=== PATIENT | female | born 1960 | race Caucasian/White ===

== ENCOUNTER → 2016-07-18 | Outpatient (CLI) | payer BC ==
[~2016-07-18] MED LIST: CYCL10TA45 GT; LVT.05T PO; METO25TA PO; PRAV40TA PO; [UNRECOGNIZED DRUG - OTHER] PO
--- OUTSIDE RECORDS SUMMARY | 2016-07-18 13:10 | XMS REPORT | Continuity of Care Document ---
Author Author [facility] Organization [facility] Address Unknown Phone Unavailable Allergies Medications Problems Procedures Results Encounters ACCT No. Visit Date/Time Discharge Status Pt. Type Provider Facility Loc./Unit Complaint [id number] 01/12/2014 10:57:00 2013 23:59:59 CLS Outpatient [id number] 08/13/2013 07:26:00 2013 11:05:00 DIS Outpatient [id number] 08/06/2013 07:39:00 2013 23:59:59 CLS Outpatient [id number] 11/19/2012 09:40:00 2012 23:59:59 CLS Outpatient
--- NOTE | 2016-07-18 18:36 | Diagnostic Imaging Report ---
Digital mammogram bilateral screening. This study was compared to the prior exams of 01/12/2014 and 11/19/2012. At this time, there are no current complaints. The current study was also evaluated with a Computer Aided Detection (CAD) system. FINDINGS: The fibroglandular tissue in both breasts is dense. This does limit the sensitivity of this exam. Overall, there does not appear to have been any significant change when compared to the prior study. No primary or secondary sign of malignancy is noted. IMPRESSION: 1. There is no radiographic evidence for malignancy. 2. The patient should have her annual bilateral screening mammogram on schedule in June of 2017. ACR BI-RADS Category 1: Negative. Result letter will be mailed to the patient. Note: At least 10% of breast cancer is not imaged by mammography. Dictated by: Dictated on workstation # [id number]
== END ==
LOC: RAD 07:24
PROVIDERS: ATTEND Obstetrics & Gynecology
DX: Z12.31 Encounter for screening mammogram for malignant neoplasm of breast (principal)
CPT/HCPCS: 77067

== ENCOUNTER → 2019-03-03 | Outpatient (CLI) | payer BC ==
--- NOTE | 2019-03-03 11:25 | Diagnostic Imaging Report ---
PROCEDURE: US Thyroid. TECHNIQUE: Multiple real-time grayscale images were obtained of the thyroid in various projections. INDICATION: Thyroid enlargement. No prior studies are available for comparison. Right lobe of the thyroid measures 4.9 x 1.9 x 1.7 cm and the left lobe measures 4.4 x 1.6 x 1.4 cm. Isthmus is 4 mm in thickness. There is hypoechoic nodule upper pole right lobe of the thyroid measuring 1.4 x 1.0 x 0.8 cm. No microcalcifications are seen. No other thyroid masses are identified. IMPRESSION: Small right upper pole thyroid nodule. Followup in 6 months could be performed to confirm stability. Dictated by: Dictated on workstation # [id number]
== END ==
LOC: RAD 10:47
PROVIDERS: ATTEND Nurse Practitioner Family
DX: E04.1 Nontoxic single thyroid nodule (principal)
CPT/HCPCS: 76536

== ENCOUNTER → 2019-09-22 | Outpatient (CLI) | payer BC ==
--- NOTE | 2019-09-22 13:07 | Diagnostic Imaging Report ---
CLINICAL INDICATION: Followup thyroid nodule. COMPARISONS: Ultrasound of the thyroid gland dated 03/03/2019. FINDINGS: THYROID NODULES: There is no significant change in the appearance of the solid and cystic nodule seen in the upper aspect of the right thyroid lobe which measures 1.2 cm x 0.7 cm x 0.9 cm, previously 1.4 cm x 1.0 cm x 0.8 cm. There is central Doppler flow within the septation portions of this nodule. THYROID GLAND: Besides the thyroid nodule, the thyroid gland has normal size, shape and echogenicity. The right lobe measures 4.6 cm x 1.3 cm x 2.0 cm and the left lobe measures 4.2 cm x 1.2 cm x 1.4 cm in their three dimensions. ISTHMUS: The isthmus is unremarkable and measures 2 mm in thickness. IMPRESSION: There is no significant change to the solid and cystic nodule involving the upper pole of the right thyroid lobe. The remainder of the thyroid gland is unremarkable. Dictated by: Dictated on workstation # [id number]
== END ==
LOC: RAD 12:14
PROVIDERS: ATTEND Family Medicine
DX: E04.1 Nontoxic single thyroid nodule (principal)
CPT/HCPCS: 76536

== ENCOUNTER → 2020-04-14 | Outpatient (CLI) | payer BC ==
[~2020-04-14] MED LIST changes: +RT-ALBUTEROL SULF 2.5 MG/3 ML PRE-MIX VIAL INH ONE
== END ==
LOC: RT 10:23
PROVIDERS: ATTEND Family Medicine
DX: R06.00 Dyspnea, unspecified (principal); R68.3 Clubbing of fingers
CPT/HCPCS: 94060; 94726; 94729

== ENCOUNTER → 2020-06-02 | Outpatient (CLI) | payer BC ==
[~2020-06-02] MED LIST changes: -RT-ALBUTEROL SULF 2.5 MG/3 ML PRE-MIX VIAL INH ONE
== END ==
LOC: RAD 15:45
PROVIDERS: ATTEND Obstetrics & Gynecology
DX: Z12.31 Encounter for screening mammogram for malignant neoplasm of breast (principal)
CPT/HCPCS: 77063; 77067

== ENCOUNTER → 2022-01-06 | Outpatient (CLI) | payer BC | LOC: CARD 12:27 | PROVIDERS: ATTEND Internal Medicine Cardiovascular Disease | DX: I08.0 Rheumatic disorders of both mitral and aortic valves (principal); I11.9 Hypertensive heart disease without heart failure | CPT/HCPCS: 93306 ==

== ENCOUNTER → 2022-02-14 | Outpatient (CLI) | payer BC ==
--- NOTE | 2022-02-14 16:32 | Diagnostic Imaging Report ---
PROCEDURE: US Thyroid. TECHNIQUE: Multiple real-time grayscale images were obtained of the thyroid in various projections. INDICATION: Thyroid nodule, follow-up. Correlation is made with prior ultrasound from 09/22/2019. FINDINGS: Right lobe of the thyroid measures 5.4 x 1.6 x 1.5 cm, and the left lobe measures 5.5 x 2.0 x 1.4 cm. Isthmus is 4 mm in thickness. Nodule in the upper pole right lobe of the thyroid is no longer mixed solid and cystic. This is primarily solid on today's study measuring 1.6 x 0.7 x 1.2 cm compared with 1.2 x 0.7 x 0.9 cm. The remainder of the right lobe as well as the left lobe are heterogeneous, but no discrete mass is seen. IMPRESSION: Slight increase in size of the solid nodule in the upper pole right lobe of the thyroid when compared with prior study from August 2019. This would be amenable to fine-needle aspiration. Dictated by: Dictated on workstation # [id number]
== END ==
LOC: RAD 15:15
PROVIDERS: ATTEND Family Medicine
DX: E04.1 Nontoxic single thyroid nodule (principal)
CPT/HCPCS: 76536

== ENCOUNTER → 2022-02-23 | Outpatient (CLI) | payer BC ==
[~2022-02-23] VITALS: Ht 157.5 cm; Wt 70.5 kg
[~2022-02-23] MED LIST changes: +LIDOCAINE 1% INJ 10 ML VIAL INJ ONE
--- NOTE | 2022-02-23 14:47 | Diagnostic Imaging Report ---
INDICATION: Right lobe thyroid nodule. Patient presents for ultrasound-guided fine-needle aspiration. Patient brought to the procedure room and placed on table in the supine position. Ultrasound imaging of the right neck was performed evaluate appropriate entry site. The right neck was then prepped and draped in usual sterile fashion. Small amount of 1% lidocaine was utilized for local anesthesia. A total of 4 passes were made into the solid nodule in upper pole of the right lobe of thyroid utilizing 25-gauge needles and fine-needle aspiration technique. Hemostasis was obtained. Patient tolerated the procedure well and left the department in stable condition. IMPRESSION: Successful ultrasound-guided fine-needle aspiration of right upper lobe thyroid nodule. Pathology results are currently pending. Dictated by: Dictated on workstation # [id number]
== END ==
LOC: RAD 13:30
PROVIDERS: ATTEND Nurse Practitioner Family
DX: E04.1 Nontoxic single thyroid nodule (principal)
CPT/HCPCS: 10005

== ENCOUNTER → 2022-09-25 | Outpatient (CLI) | payer BC ==
[~2022-09-25] VITALS: Ht 157 cm; Wt 73.0 kg
[~2022-09-25] MED LIST changes: +CATHETER FLUSH 10 ML SYR IVP PRN; -LIDOCAINE 1% INJ 10 ML VIAL INJ ONE
[2022-09-25 09:27] VITALS: BP 211/74
--- NOTE | 2022-09-25 12:18 | Cardiology Stress Test Report ---
Stress Test Report Date of Procedure/Referring: Date of Procedure: September 25, 2022 PCP Evette Vasquez MD Admitting Physician Admitting Physician: Attending Physician: Aida Ortiz Indications: HTN Baseline Heart Rate: 83 Baseline Blood Pressure: Blood Pressure Systolic: 211 Blood Pressure Diastolic: 74 Vital Signs Date Time Temp Pulse Resp B/P (MAP) Pulse Ox O2 Delivery O2 Flow Rate FiO2 09/25/22 09:27 72 211/74 (119) Baseline Vital Signs Vital Signs Date Time Temp Pulse Resp B/P (MAP) Pulse Ox O2 Delivery O2 Flow Rate FiO2 09/25/22 09:27 72 211/74 (119) Baseline EKG: Baseline EKG: NSR Summary: After explaining the procedure and details to the patient, she signed the consent and was brought to the stress nuclear laboratory. Patient exercised on standard Brian protocol, EKG, heart rate and blood pressure were monitored continuously, resting and stress doses of radio tracer were injected, imaging was acquired and reviewed in the short axis, horizontal long axis and vertical long axis views Patient was able to exercise for a total of 9 minutes on Brian protocol, METs 10.5 Maximum heart rate 145 Maximum blood pressure 239/60 Stress EKG, Minimal nondiagnostic changes Recovery EKG, Return to baseline TID: 0.96 SSS: 1 SDS: 1 EF: 73 Conclusion: Good exercise tolerance for 9 minutes on standard Brian protocol, 10.5 METS achieving 91% of maximum expected heart rate Baseline hypertension with hypertensive response to exercise with peak blood pressure 239/60 returned to baseline during recovery Baseline frequent PVCs and ventricular trigeminy improved during exercise and at peak stress level and return to have PVCs in recovery No significant ischemia or infarction noted on SPECT images Normal left ventricular size, ejection fraction 73% Copy Copies To 1: EVETTE VASQUEZ MD, BASHAR J MD September 25, 2022 12:18
== END ==
LOC: CARD 07:55
PROVIDERS: ATTEND Physician Assistant
DX: I10 Essential (primary) hypertension (principal)
CPT/HCPCS: 78452; 93017; A9502